=== PATIENT | male | born 1980 | race American Indian/Alaskan Native ===

== ENCOUNTER 2017-03-30 08:05 | Emergency (ER) | payer MEDICAID ==
--- NOTE | 2017-03-30 08:38 | ED PDOC ---
HPI: General Adult Time Seen by Provider: 03/30/17 08:21 Chief Complaint (Nursing): Abnormal Skin Integrity History Per: Patient (Requesting referal for removal "bump" on chest wall that has been their many months. No drainage. Mildly painful. No fever. has not grown ) Current Symptoms Are (Timing): Still Present Severity: Mild Pain Scale Rating Of: 1 Past Medical History - Medical History PMH: No Chronic Diseases - Family History Family History: States: Unknown Family Hx - Allergies Allergies/Adverse Reactions: Allergies Allergy/AdvReac Type Severity Reaction Status Date / Time shellfish derived Allergy SWELLING Verified 03/30/17 08:26 Review of Systems Constitutional: Negative for: Fever Skin: Positive for: Other (Lipoma). Negative for: Rash Physical Exam - Physical Exam Appears: Positive for: Non-toxic, No Acute Distress Skin: Positive for: Normal Color, Warm. Negative for: Rash (1 cm soft movable lipoma) Disposition - Clinical Impression Clinical Impression: Lipoma - Disposition Referrals: [facility] [Outside] Disposition: Routine/Home Disposition Time: 08:38 Condition: FAIR Instructions: Lipoma (ED) Forms: [employer] (Tristanian)
== END 2017-03-30 09:01 | disposition home or self-care (01) ==
LOC: H.ER 08:05
DX: D17.1 Benign lipomatous neoplasm of skin and subcutaneous tissue of trunk (principal)